=== PATIENT | female | born 1950 | race Caucasian/White ===

== ENCOUNTER → 2017-10-05 | Outpatient (CLI) | payer OTHER ==
--- NOTE | ~2017-10-05 | EKG ---
[place] [address] [facility] [place] [address] ELECTROCARDIOGRAM REPORT Name: ANIA MARRUFO Room #: REG CLI [facility]#: [id number] Admission: 10/05/17 Attend Phys: Riley Lyman MD Discharge: Date of : 54 Report #: [id number] THIS REPORT FOR: //name// [facility] Test Date: 2017-10-05 Test Time: 16:20:43 Pat Name: ANIA MARRUFO Department: Room: Gender: F Knitting Machine Operator: Lilibeth TINEO : 1950 Requested By: Riley Lyman Order Number: [id number] MD: Shaun Arnold Measurements Intervals [place] Rate: 76 P: 25 [place]: 157 QRS: 12 QRSD: 95 T: 13 QT: 363 QTc: 409 Interpretive Statements Sinus rhythm No significant abnormality Compared to ECG 07/09/1995 13:15:00 No significant changes Electronically Signed On 10-06-2017 8:45:54 [employer] by Shaun Arnold [email or web address] <ELECTRONICALLY SIGNED> By: Shaun Arnold MD, [facility] 10/06/17 0845 D: 01/1619 19 Shaun Arnold MD, FACC /EPI
[2017-10-05 16:55] LABS: ABSOLUTE NEUTROPHILS 7.7 thou/uL (1.4-8.2); BASOPHILS 0.7 % (0.0-2.0); EOSINOPHILS 3.1 % (0.0-3.0); HEMATOCRIT 39.5 % (37.0-47.0); HEMOGLOBIN 13.1 gm/dL (12.0-15.0); LYMPHOCYTES 25.2 % (24.0-44.0); MCH 25.9 pg (26.0-34.0); MCHC 33.2 g/dL (28.0-37.0); MCV 78.2 fL (80.0-100.0); MONOCYTES 5.1 % (1.0-8.0); PLATELET COUNT 269 thou/uL (150-400); POLYS 65.9 % (36.0-66.0); RBC 5.06 mil/uL (4.20-5.00); WBC 11.7 thou/uL (4.0-11.0)
[2017-10-05 17:08] LABS: CALCIUM 9.7 mg/dL (8.5-10.1); CREATININE 0.8 mg/dL (0.6-1.0); POTASSIUM 4.2 mmol/L (3.5-5.1)
[2017-10-05 17:14] LABS: TOTAL BILIRUBIN 0.4 mg/dL (<0.1-1.0); TOTAL PROTEIN 7.2 g/dL (6.4-8.2)
[2017-10-05 17:28] LABS: ALBUMIN 4.1 g/dL (3.4-5.0)
== END ==
LOC: CV 16:03
PROVIDERS: Otolaryngology Plastic Surgery within the Head & Neck
DX: K21.9 Gastro-esophageal reflux disease without esophagitis (principal); J32.2 Chronic ethmoidal sinusitis; J32.3 Chronic sphenoidal sinusitis; J32.1 Chronic frontal sinusitis; J32.0 Chronic maxillary sinusitis; J34.2 Deviated nasal septum; J34.3 Hypertrophy of nasal turbinates; J30.2 Other seasonal allergic rhinitis; R49.0 Dysphonia; R09.89 Other specified symptoms and signs involving the circulatory and respiratory systems; E66.01 Morbid (severe) obesity due to excess calories

== ENCOUNTER → 2017-10-22 | Outpatient (CLI) | payer OTHER ==
--- NOTE | ~2017-10-22 | P ---
[facility] [place] [address] PROCEDURE REPORT Name: ANIA MARRUFO Room #: REG [facility]#: [id number] Admission: 10/22/17 Attend Phys: Larry Dyer MD Discharge: Date of : 54 Report #: [id number] THIS REPORT FOR: //name// CC: hSawn Dyer DATE OF SERVICE: 10/22/2017 PROCEDURE: Fiberoptic bronchoscopy. 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 PROCEDURE NOTATION: After discussing risks and benefits of planned procedure with the patient, she desired to proceed. After obtaining informed consent, she was brought to medical lab tech instructor room 3 where she was placed on continuous cardiopulmonary monitoring and supplemental oxygen, given 4% lidocaine nebulized to anesthetize the upper respiratory tract. Once accomplished, she received conscious sedation a total 4 mg of Versed and 25 mcg of fentanyl were titrated during the procedure to provide adequate sedation. Once accomplished, bronchoscope was passed through an oral biteblock until the vocal cords were visualized. Lidocaine 1% was instilled in the vocal cords for topical anesthesia. Once complete, the bronchoscope was passed into the trachea with some difficulty. Lidocaine 1% was then instilled in the trachea to provide topical anesthesia. The airways were then surveyed. FINDINGS: Mainstem, lobar, segmental and subsegmental bronchi and trachea were all explored thoroughly. The patient had some difficulty breathing due to the trachea passed a proximal subglottic stenosis. The distal trachea and airways appeared patent without any significant anatomic variation or lesions. The bronchoscope was then slowly withdrawn in the upper airway and the proximal trachea was evaluated. The vocal cords appeared normal and moved appropriately both before and after the procedure. However, just below the vocal cord less than 1 cm appeared significant narrowing, but did allow passage of the bronchoscope. There is some erythema and ulcerations to the airway. Some white plaque-like material also noted. No biopsies or other samples due to the high risk of the procedure with conscious sedation. The patient tolerated well otherwise no noted complications. Recovered well. Discussed with Dr. Lyman postprocedure. We will discuss further with the patient. Consider also [address] [address] PROCEDURE REPORT Name: ANIA MARRUFO Room #: REG [facility] [place].#: [id number] Admission: 10/22/17 Attend Phys: Larry Dyer MD Discharge: Date of : 54 Report #: [id number] evaluating for vasculitis such as Ann's. Consider further biopsy of the trachea under general anesthesia and rigid laryngoscope. <ELECTRONICALLY SIGNED> By: Larry Dyer MD 11/02/17 1535 [id number] Larry Dyer MD /nt
== END | disposition home or self-care (01) ==
LOC: GI 10:47 → CATH 11:48
DX: J39.8 Other specified diseases of upper respiratory tract (principal); Z79.82 Long term (current) use of aspirin

== ENCOUNTER → 2019-09-19 | Outpatient (CLI) | payer OTHER | LOC: RAD 09-08 10:02 | DX: Z12.31 Encounter for screening mammogram for malignant neoplasm of breast (principal) ==

== ENCOUNTER → 2020-09-19 | Outpatient (CLI) | payer OTHER | LOC: RAD 14:05 | PROVIDERS: ATTEND Family Medicine | DX: Z12.31 Encounter for screening mammogram for malignant neoplasm of breast (principal) ==

== ENCOUNTER → 2021-08-27 | Outpatient (CLI) | payer OTHER | LOC: BC 13:21 | PROVIDERS: ATTEND Family Medicine | DX: Z12.31 Encounter for screening mammogram for malignant neoplasm of breast (principal); N64.89 Other specified disorders of breast ==